=== PATIENT | male | born 1995 | race Caucasian/White ===

== ENCOUNTER 2021-10-12 11:46 | Emergency (ER) | payer SELFPAY ==
--- NOTE | 2021-10-12 12:52 | EDPHYS ---
Physician Documentation [facility] Name: Bishop Traore Age: 26 yrs Sex: Male : 1995 Arrival Date: 10/12/2021 Time: 11:47 Bed 20 Private MD: ED Physician Mira Francisco HPI: 10/12 12:48 This 26 yrs old Male presents to ER via Ambulatory with complaints of Chest Tightness, ma2 Numbness Of Arm. 12:48 Associated signs and symptoms: Pertinent negatives: cough, headache, lower extremity ma2 swelling, nausea, near syncope, syncope, vomiting. 26-year-old male, presents with episode of lightheadedness, happened spontaneously while sitting, he did not pass out did not had headache no palpitation no chest pain no shortness of breath. Of note he had similar symptom in the past had full work-up in ER, referred to dehydrogenation operator head, had full work-up at dehydrogenation operator head office. Director Social Service cleared him and referred him to neurologist. Patient has not followed up with a neurologist yet.. Historical: - Allergies: 11:58 No Known Allergies; jd3 - Home Meds: 11:58 None [Active]; jd3 - PMHx: 11:58 None; jd3 - PSHx: 11:58 None; jd3 - Immunization history:: Adult Immunizations up to date, Client reports having NOT received the Covid vaccine. Flu vaccine is not up to date. - Social history:: Smoking status: Patient denies any tobacco usage or history of. - Family history:: not pertinent. ROS: 12:48 Constitutional: Negative for fever, chills, and weight loss. ma2 12:48 All other systems are negative. Exam: 12:48 Constitutional: This is a well developed, well nourished patient who is awake, alert, ma2 and in no acute distress. Head/Face: Normocephalic, atraumatic. Eyes: Pupils equal round and reactive to light, extra-ocular motions intact. Lids and lashes normal. Conjunctiva and sclera are non-icteric and not injected. Cornea within normal limits. Periorbital areas with no swelling, redness, or edema. ENT: Nares patent. No nasal discharge, no septal abnormalities noted. Tympanic membranes are normal and external auditory canals are clear. Oropharynx with no redness, swelling, or masses, exudates, or evidence of obstruction, uvula midline. Mucous membranes moist. Neck: Trachea midline, no thyromegaly or masses palpated, and no cervical lymphadenopathy. Supple, full range of motion without nuchal rigidity, or vertebral point tenderness. No Meningismus. Chest/axilla: Normal chest wall appearance and motion. Nontender with no deformity. No lesions are appreciated. Cardiovascular: Regular rate and rhythm with a normal S1 and S2. No gallops, murmurs, or rubs. Normal PMI, no JVD. No pulse deficits. Respiratory: Lungs have equal breath sounds bilaterally, clear to auscultation and percussion. No rales, rhonchi or wheezes noted. No increased work of breathing, no retractions or nasal flaring. Abdomen/GI: Soft, non-tender, with normal bowel sounds. No distension or tympany. No guarding or rebound. No evidence of tenderness throughout. Skin: Warm, dry with normal turgor. Normal color with no rashes, no lesions, and no evidence of cellulitis. MS/ Extremity: Pulses equal, no cyanosis. Neurovascular intact. Full, normal range of motion. Neuro: Awake and alert, GCS 15, oriented to person, place, time, and situation. Cranial nerves II-XII grossly intact. Motor strength 5/5 in all extremities. Sensory grossly intact. Cerebellar exam normal. Normal gait. Vital Signs: 11:58 BP 123 / 74; Pulse 70; Resp 17 S; Temp 97.6(TE); Pulse Ox 100% on R/A; Weight 63.5 kg jd3 (R); Height 5 ft. 9 in. (175.26 cm) (R); Pain 2/10; 11:58 Body Mass Index 20.67 (63.50 kg, 175.26 cm) jd3 MDM: 12:39 Patient medically screened. ma2 12:48 Differential diagnosis: anxiety, chest wall pain, gastroesophageal reflux disease ma2 (GERD), EKG is done and shows no abnormalities, specifically no ischemic changes, all intervals are normal no QT prolongation, no Brugada no signs of hypertrophic cardiomyopathy no signs of right heart strain specifically no S1 every 3 T3. No bradycardia or blocks. Vital signs remained normal throughout stay in ER. No emergency condition exists at this time patient symptoms resolved he would like to be discharged. I advised patient to follow-up with a neurologist. He declined my recommendation of a neurology referral. Has he lives in [place] and he will follow-up with a neurologist over there. Data reviewed: vital signs, nurses notes, EMS record, group home records, EKG. Counseling: I had a detailed discussion with the patient and/or guardian regarding: the historical points, exam findings, and any diagnostic results supporting the discharge/admit diagnosis, the need for outpatient follow up. Response to treatment: the patient's symptoms have resolved after treatment. 10/12 11:58 Order name: EKG - Nurse/Tech; Complete Time: 12:08 ma2 Administered Medications: No medications were administered Disposition Summary: 10/12/21 12:52 Discharge Ordered Location: Home ma2 Condition: Stable ma2 Diagnosis - Dizziness and giddiness - Lightheadedness ma2 Followup: ma2 - With: Private Physician - When: Tomorrow - Reason: Continuance of care Discharge Instructions: - Discharge Summary Sheet ma2 - Dizziness ma2 Forms: - Medication Reconciliation Form ma2 - Thank You Letter ma2 - Antibiotic Education ma2 - Prescription Opioid Use ma2 Signatures: Dean Rosario RN RN jMira Belcher MD MD ma2 Corrections: (The following items were deleted from the chart) 12:49 12:48 26-year-old male, presents with episode of lightheadedness, happened ma2 spontaneously while sitting, he did not pass out did not had headache no palpitation no chest pain no shortness of breath. Of note he had similar symptom in the past had full work-up in ER, referred to dehydrogenation operator head, had full work-up at dehydrogenation operator head office. Director Social Service cleared him and referred him to neurologist.. ma2
--- NOTE | 2021-10-12 12:52 | ER ---
Nurse's Notes [facility] Name: Bishop Traore Age: 26 yrs Sex: Male : 1995 Arrival Date: 10/12/2021 Time: 11:47 Bed 20 Private MD: Diagnosis: Dizziness and giddiness-Lightheadedness Presentation: 10/12 11:56 Chief complaint: Patient states: "I have been seen by a fundraising assistant for a heart jd3 problem for the past couple of months, but they determined everything was ok so I stopped going. well yesterday and today I started having this chest pain and my left arm goes numb. I also get shortness of breath and nausea.". Coronavirus screen: At this time, the client does not indicate any symptoms associated with coronavirus-19. Ebola Screen: No symptoms or risks identified at this time. Initial Sepsis Screen: Does the patient meet any 2 criteria? No. Patient's initial sepsis screen is negative. Does the patient have a suspected source of infection? No. Patient's initial sepsis screen is negative. Risk Assessment: Do you want to hurt yourself or someone else? Patient reports no desire to harm self or others. Onset of symptoms was October 12, 2021. 11:56 Method Of Arrival: Ambulatory jd3 11:56 Acuity: ANEESH 3 jd3 Historical: - Allergies: 11:58 No Known Allergies; jd3 - Home Meds: 11:58 None [Active]; jd3 - PMHx: 11:58 None; jd3 - PSHx: 11:58 None; jd3 - Immunization history:: Adult Immunizations up to date, Client reports having NOT received the Covid vaccine. Flu vaccine is not up to date. - Social history:: Smoking status: Patient denies any tobacco usage or history of. - Family history:: not pertinent. Screenin:15 Abuse screen: Denies threats or abuse. Denies injuries from another. Nutritional ww screening: No deficits noted. Tuberculosis screening: No symptoms or risk factors identified. Fall Risk None identified. Assessment: 13:15 General: Appears in no apparent distress. comfortable, Behavior is cooperative. Pain: ww Denies pain. Pain does not radiate. Pain began. Neuro: Level of Consciousness is awake, alert, obeys commands, Oriented to person, place, time, situation, Moves all extremities. Speech is normal. Neuro: Reports dizziness. Cardiovascular: Reports Capillary refill < 3 seconds Patient's skin is warm and dry. Rhythm is regular. Respiratory: Airway is patent Respiratory effort is even, unlabored, Respiratory pattern is regular, symmetrical. GI: No signs and/or symptoms were reported involving the gastrointestinal system. : No signs and/or symptoms were reported regarding the genitourinary system. Derm: No signs and/or symptoms reported regarding the dermatologic system. Skin is intact, is healthy with good turgor, Skin is pink, warm \\T\\ dry. Vital Signs: 11:58 BP 123 / 74; Pulse 70; Resp 17 S; Temp 97.6(TE); Pulse Ox 100% on R/A; Weight 63.5 kg j (R); Height 5 ft. 9 in. (175.26 cm) (R); Pain 2/10; 11:58 Body Mass Index 20.67 (63.50 kg, 175.26 cm) [facility] ED Course: 11:47 Patient arrived in ED. as 11:53 Mira Francisco MD is Attending Physician. rachell 11:57 Triage completed. [facility] 11:58 Arm band placed on. EKG completed in triage. Results shown to . aisha 12:08 Ambar Ventura, RN is Primary Nurse. ww 13:15 Patient has correct armband on for positive identification. Bed in low position. Call ww light in reach. Side rails up X 1. Adult w/ patient. Client placed on continuous cardiac and pulse oximetry monitoring. NIBP monitoring applied. 13:15 No provider procedures requiring assistance completed. Patient did not have IV access ww during this emergency room visit. Patient maintains SpO2 saturation greater than 95% on room air. Administered Medications: No medications were administered Outcome: 12:52 Discharge ordered by . rachell 13:48 Discharged to home ambulatory. ww 13:48 Condition: stable 13:48 Discharge instructions given to patient, Instructed on discharge instructions, follow up and referral plans. safety practices, Demonstrated understanding of instructions, follow-up care. 13:48 Patient left the ED. ww Signatures: Fide Aguirre Jonathon, RN RN Mira Ochoa MD MD ma2 Wood, Whitney, RN RN ww
[2021-10-12 13:53] VITALS: BP 123/74; TEMP 97.6; O2SAT 100
--- NOTE | 2021-10-14 14:44 | EKG ---
Test Date: 2021-10-12 Test Time: 11:58:56 [employer] Cutter: TP MEASUREMENT RESULTS: Intervals: Rate: 63 VT: 126 QRSD: 94 QT: 394 QTc: 403 [place]: P: 62 VT: 126 QRS: 104 T: 42 INTERPRETIVE STATEMENTS: Sinus rhythm with marked sinus arrhythmia Rightward axis Borderline ECG No previous ECG available for comparison Electronically Signed On 10-14-21 14:41:18 CDT by Feliberto Canchola
== END 2021-10-12 13:48 | disposition home or self-care (01) ==
LOC: ER 11:46
DX: R42 Dizziness and giddiness (principal)
CPT/HCPCS: 93005; 99284